=== PATIENT | female | born 1970 | race African-American/Black ===

== ENCOUNTER → 2018-02-27 | Outpatient (CLI) | payer BC ==
--- NOTE | 2018-02-27 17:17 | RAD ---
PA and lateral chest radiograph. History: Right supraclavicular lymph node. Comparison: None. Findings: Cardiomediastinal silhouette is within normal limits for size. Bilateral lung esteves appear clear without evidence of infiltrate, effusion, or pneumothorax. Impression: 1. No acute cardiopulmonary process. Electronically signed by: Mark Porter MD (02/27/2018 5:14 PM) [place] [id number]
== END | disposition home or self-care (01) ==
LOC: RAD 15:13
PROVIDERS: ATTEND Surgery
DX: M25.511 Pain in right shoulder (principal)
CPT/HCPCS: 71046